=== PATIENT | male | born 1960 | race Caucasian/White ===

== ENCOUNTER 2022-11-18 07:41 | Outpatient (REF) | payer OTHER, SELFPAY ==
--- NOTE | ~2022-11-18 | XR_ITS ---
EXAMINATION: XR ANKLE, RIGHT CLINICAL INFORMATION: Pain in right ankle. COMPARISON: None TECHNIQUE: AP, lateral, and mortise views of the right ankle. FINDINGS: There is irregularity involving the right distal fibular bone and periosteal thickening likely old healed fracture. There is small avulsion fracture fragment tip of medial malleolus. No visible acute fracture, dislocation or subluxation seen. There is mild bimalleolar soft tissue swelling XR/XR ankle RT min 3V IMPRESSION: 1. Old healed fracture distal fibular bone with periosteal thickening. 2. Small avulsion fracture fragment tip of medial malleolus. 3. There is bimalleolar soft tissue swelling. 4. No visible acute fracture or dislocation seen.
== END 2022-11-18 07:42 | disposition home or self-care (01) ==
LOC: HO.HOSX 07:41
PROVIDERS: Visit Provider Physician Assistant
DX: M19.071 Primary osteoarthritis, right ankle and foot (principal); Z87.81 Personal history of (healed) traumatic fracture
CPT/HCPCS: 73610; 99202